=== PATIENT | female | born 1950 | race Caucasian/White ===

== ENCOUNTER 2017-07-17 21:22 | Outpatient (CLI) | payer MEDICAID | END 2017-07-17 21:23 | disposition short-term general hospital (02) | LOC: EMS 21:22 | PROVIDERS: ATTEND Surgery | DX: R58 Hemorrhage, not elsewhere classified (principal) | CPT/HCPCS: A0425; A0429 ==

== ENCOUNTER 2023-02-28 19:18 | Outpatient (CLI) | payer MEDICARE, MEDICAID | END 2023-02-28 19:19 | disposition short-term general hospital (02) | LOC: EMS 19:18 | DX: R06.02 Shortness of breath (principal); R05.9 Cough, unspecified | CPT/HCPCS: A0425; A0427 ==